=== PATIENT | female | born 1990 ===

== ENCOUNTER 2017-11-09 10:58 | Outpatient (CLI) | payer OTHER | END 2017-11-09 15:51 | disposition home or self-care (01) | LOC: SONOGRAMA 10:58 | DX: M71.22 Synovial cyst of popliteal space [Baker], left knee (principal) ==

== ENCOUNTER 2020-07-08 11:14 | Outpatient (CLI) | payer OTHER | END 2020-07-08 15:19 | disposition home or self-care (01) | LOC: LAB 11:14 | PROVIDERS: ATTEND Obstetrics & Gynecology | DX: N91.1 Secondary amenorrhea (principal) ==

== ENCOUNTER → 2020-10-10 | Outpatient (CLI) | payer OTHER | END | disposition home or self-care (01) | LOC: SONOGRAMA 12:16 | PROVIDERS: ATTEND Obstetrics & Gynecology | DX: N30.00 Acute cystitis without hematuria (principal) ==

== ENCOUNTER 2021-04-02 11:38 | Outpatient (CLI) | payer OTHER | END 2021-04-02 12:00 | disposition home or self-care (01) | LOC: SONOGRAMA 11:38 | PROVIDERS: ATTEND Obstetrics & Gynecology | DX: Z34.81 Encounter for supervision of other normal pregnancy, first trimester (principal) ==

== ENCOUNTER 2021-04-28 09:53 | Outpatient (CLI) | payer OTHER | END 2021-04-28 09:55 | disposition home or self-care (01) | LOC: LAB 09:53 | PROVIDERS: ATTEND Internal Medicine Cardiovascular Disease | DX: U07.1 COVID-19 (principal) ==

== ENCOUNTER 2021-11-07 13:45 | Inpatient (IN) | payer OTHER ==
[~2021-11-07] VITALS: Ht 165.1 cm; Wt 74.8 kg
[2021-11-26] MEDS ORDERED: PRENATAL TABLE1 EAC1 PO (07:55)
== END 2021-11-29 12:39 | disposition home or self-care (01) | DRG 788 ==
LOC: LDR 11-26 06:18 → OB/GYN 11-26 06:18 → LDR 11-26 07:05 → OB/GYN 11-26 20:29
PROVIDERS: ADMIT Obstetrics & Gynecology; ATTEND Obstetrics & Gynecology
PROC: 4A1HXCZ Monitoring of Products of Conception, Cardiac Rate, External Approach (ICD-10-PCS; 2021-11-26)
PROC: 10D00Z1 Extraction of Products of Conception, Low, Open Approach (ICD-10-PCS; principal; 2021-11-26 17:00)
DX: O62.1 Secondary uterine inertia (principal); O99.820 Streptococcus B carrier state complicating pregnancy; Z3A.40 40 weeks gestation of pregnancy; Z37.0 Single live birth; Z20.822 Contact with and (suspected) exposure to COVID-19

== ENCOUNTER 2021-11-21 09:19 | Outpatient (CLI) | payer OTHER | END 2021-11-21 09:35 | disposition home or self-care (01) | LOC: NST 09:19 | PROVIDERS: ATTEND Obstetrics & Gynecology Maternal & Fetal Medicine | DX: Z34.83 Encounter for supervision of other normal pregnancy, third trimester (principal) ==

== ENCOUNTER 2022-01-21 13:04 | Outpatient (CLI) | payer OTHER ==
[~2022-01-21 13:04] MED LIST: PRENATAL TABLE1 EAC1 PO
== END 2022-01-21 13:09 | disposition home or self-care (01) ==
LOC: PPH VACUNA 13:04
PROVIDERS: ATTEND Emergency Medicine Pediatric Emergency Medicine
DX: Z23 Encounter for immunization (principal)

== ENCOUNTER 2022-12-30 10:24 | Outpatient (CLI) | payer OTHER | END 2022-12-30 10:50 | disposition home or self-care (01) | LOC: MRI 10:24 | PROVIDERS: ATTEND Obstetrics & Gynecology | DX: N90.7 Vulvar cyst (principal) | CPT/HCPCS: 72197 ==

== ENCOUNTER 2023-01-22 10:45 | Outpatient (CLI) | payer OTHER | END 2023-01-22 10:55 | disposition home or self-care (01) | LOC: PPH VACUNA 10:45 | PROVIDERS: ATTEND Emergency Medicine Pediatric Emergency Medicine | DX: Z23 Encounter for immunization (principal) | CPT/HCPCS: 90686; G0008 ==

== ENCOUNTER 2023-06-22 10:12 | Outpatient (CLI) | payer OTHER | END 2023-06-22 11:14 | disposition home or self-care (01) | LOC: RAD 10:12 | DX: Z01.810 Encounter for preprocedural cardiovascular examination (principal) ==

== ENCOUNTER 2024-05-12 09:42 | Outpatient (CLI) | payer OTHER | END 2024-05-12 14:56 | disposition home or self-care (01) | LOC: SONOGRAMA 09:42 | PROVIDERS: ATTEND Radiology Diagnostic Radiology | DX: M25.562 Pain in left knee (principal) | CPT/HCPCS: 73721 ==

== ENCOUNTER 2024-07-24 12:01 | Outpatient (CLI) | payer OTHER | END 2024-07-24 12:20 | disposition home or self-care (01) | LOC: MRI 12:01 | PROVIDERS: ATTEND Radiology Diagnostic Radiology | DX: M54.16 Radiculopathy, lumbar region (principal) | CPT/HCPCS: 72148 ==

== ENCOUNTER → 2025-01-29 | Outpatient (CLI) | payer OTHER | END | disposition home or self-care (01) | LOC: SONOGRAMA 11:01 | PROVIDERS: ATTEND Radiology Diagnostic Radiology | DX: N88.3 Incompetence of cervix uteri (principal) ==